=== PATIENT | female | born 1955 | race Caucasian/White ===

== ENCOUNTER 2017-09-01 16:13 | Outpatient (CLI) | payer BC | END 2017-09-01 16:14 | disposition home or self-care (01) | LOC: BICRAD 16:13 | PROVIDERS: ATTEND Internal Medicine Rheumatology | DX: L40.50 Arthropathic psoriasis, unspecified (principal) | CPT/HCPCS: 71046 ==

== ENCOUNTER 2018-03-28 15:56 | Outpatient (CLI) | payer BC | END 2018-03-28 15:57 | disposition home or self-care (01) | LOC: BICMAMMO 15:56 | PROVIDERS: ATTEND Obstetrics & Gynecology | DX: Z12.31 Encounter for screening mammogram for malignant neoplasm of breast (principal); Z98.890 Other specified postprocedural states | CPT/HCPCS: 77063; 77067 ==

== ENCOUNTER 2023-07-27 17:00 | Outpatient (CLI) | payer BC | END 2023-07-27 17:01 | disposition home or self-care (01) | LOC: SLEEPLAB 17:00 | PROVIDERS: ATTEND Internal Medicine | DX: G47.33 Obstructive sleep apnea (adult) (pediatric) (principal); K21.9 Gastro-esophageal reflux disease without esophagitis; I10 Essential (primary) hypertension; I63.9 Cerebral infarction, unspecified; E66.9 Obesity, unspecified; Z68.35 Body mass index [BMI] 35.0-35.9, adult | CPT/HCPCS: 95800 ==

== ENCOUNTER → 2023-09-26 | Day surgery (SDC) | payer BC ==
[~2023-09-26] MED LIST: Acetaminophen 500 MG TAB ONE; diphenhydrAMINE 25 MG CAP ONE
[2023-09-26] MEDS: diphenhydrAMINE 25 MG CAP PO SCH (13:23)
[2023-09-26] MEDS: Acetaminophen 500 MG TAB PO SCH (13:23)
[2023-09-26 16:05] VITALS: BP 120/58; TEMP 98.1
== END ==
LOC: ONC/OP 11:01
PROVIDERS: ATTEND Internal Medicine
DX: D64.9 Anemia, unspecified (principal); D69.6 Thrombocytopenia, unspecified
CPT/HCPCS: 36430; 86850; 86900; 86901; P9016